=== PATIENT | female | born 1955 | race Caucasian/White ===

== ENCOUNTER 2017-11-19 11:09 | Emergency (ER) | payer OTHER ==
[2017-11-19 11:18] VITALS: BP 141/81; PULSE 80; TEMP 98.8; BMI 23.8
--- NOTE | 2017-11-19 12:03 | PDOC ---
History of Present Illness - General Chief Complaint: Injury Stated Complaint: INJURY Time Seen by Provider: 11/19/17 12:00 - History of Present Illness Initial Comments: 62-year-old female without comorbidities presents for evaluation of right fifth toe pain. She states she stubbed her toe into the sink of a kitchen while cleaning to presents with pain. 11/19/17 12:03 Past History - Past Medical History Allergies/Adverse Reactions: Allergies Allergy/AdvReac Type Severity Reaction Status Date / Time No Known Allergies Allergy Verified 11/19/17 12:01 Home Medications: Ambulatory Orders Unobtainable Home Med List 0 dose .ROUTE UTDICT 03/01/13 CVA: Yes (1 year ago) COPD: No HTN: Yes Hypercholesterolemia: Yes Psychiatric Problems: Yes (ANXIETY) - Immunization History Immunization Up to Date: Yes - Suicide/Smoking/Psychosocial Hx Smoking Status: Yes Smoking History: Current every day smoker Number of Cigarettes Smoked Daily: 8 Information on smoking cessation initiated: No 'Breaking Loose' booklet given: 03/02/13 Hx Alcohol Use: No Substance Use Type: None Review of Systems - Review of Systems Musculoskeletal: Yes: See HPI, Joint Pain All Other Systems: Reviewed and Negative *Physical Exam - Vital Signs Last Vital Signs Temp Pulse Resp BP Pulse Ox 98.8 F 80 18 141/81 11/19/17 11:14 11/19/17 11:14 11/19/17 11:14 11/19/17 11:14 - Physical Exam Comments: Right foot normal color and temperature there is tenderness about the fifth toe. There are no gross sensorimotor deficits. She's neurovascular intact. 11/19/17 12:03 ED Treatment Course - RADIOLOGY Radiology Studies Ordered: Category Date Time Status TOE(S) RIGHT [RAD] Stat Radiology 11/19/17 12:01 Ordered Medical Decision Making - Medical Decision Making Under aseptic technique 10 mL of lidocaine cane was used without epinephrine for digital block of the right fifth toe this was tolerated well. After appropriate anesthesia was obtained. Gentle traction and countertraction with manipulation was applied to the proximal phalanx of the right fifth toe. Reduction was made and held together with siomara taping. Postreduction x-rays show adequately reduced proximal phalanx fracture of the right fifth toe. Hartsell shoe and siomara taping was advised. Orthopedic surgery follow-up was given. 11/19/17 13:28 *DC/Admit/Observation/Transfer Diagnosis at time of Disposition: Toe fracture, right - Discharge Dispostion Disposition: HOME Condition at time of disposition: Stable Decision to Admit order: No - Referrals Referrals: Alonso Haynes MD [Primary Care Provider] - Eddie Marvin MD [Staff Physician] - - Patient Instructions Printed Discharge Instructions: Toe Fracture, DI for Toe Fracture Additional Instructions: Keep ear toes siomara taped until you are seen by orthopedic surgery. He may weight-bear as tolerated with use of the Hartsell shoe and crutches. May take Tylenol and Motrin as directed for pain. Return to the emergency room should symptoms worsen or go unresolved. Follow-up with orthopedic surgery in 2-3 days. - Post Discharge Activity
[2017-11-19] MEDS ORDERED: LIDOCAINE HCL 2% (20ML MULTI-DOSE VIAL) NR ONE (12:54)
[2017-11-19] MEDS ORDERED: LIDOCAINE HCL 2% (50ML VIAL) SQ ONE (13:06)
== END 2017-11-19 13:42 | disposition home or self-care (01) ==
LOC: JERFT 11:09
PROC: 0QSQXZZ Reposition Right Toe Phalanx, External Approach (ICD-10-PCS; principal; 2017-11-19)
DX: S92.511A Displaced fracture of proximal phalanx of right lesser toe(s), initial encounter for closed fracture (principal); W22.8XXA Striking against or struck by other objects, initial encounter; Y93.E9 Activity, other interior property and clothing maintenance; Y92.040 Kitchen in boarding-house as the place of occurrence of the external cause; Y99.8 Other external cause status
CPT/HCPCS: 28510; 73660-TC-FY; 99281-25

== ENCOUNTER 2020-05-10 10:52 | Inpatient (IN) | payer OTHER ==
[~2020-05-10 10:52] MED LIST: ASPIRIN 81 MG CHEWABLE TABLETS PO SCH
[2020-05-10 12:23] LABS: BASO % 0.6 % (0-2.0); EOS % 1.4 % (0-4.5); HEMATOCRIT 40.8 % (32.4-45.2); HEMOGLOBIN 13.5 GM/dL (10.7-15.3); LYMPH % 22.9 % (8-40); MCHC 33.2 g/dl (32.0-36.0); MEAN CELL VOLUME 90.6 fl (80-96); MEAN PLT VOLUME 8.8 fl (7.5-11.1); MONO % 5.6 % (3.8-10.2); NEUT % 69.5 % (42.8-82.8); PLATELET COUNT 306 K/MM3 (134-434); RDW 14.2 % (11.6-15.6)
[2020-05-10 12:30] LABS: EPI CELLS 10 /uL (0-25.1); HYALINE CASTS 0 /uL (0-3.1); PH,URINE 6.5 (5.0-8.0); URINE APPEARANCE CLEAR; URINE BACTERIA 213 /uL (0-1359); URINE BILIRUBIN NEGATIVE (NEGATIVE); URINE COLOR YELLOW; URINE GLUCOSE (UA) NEGATIVE (NEGATIVE); URINE KETONE NEGATIVE (NEGATIVE); URINE LEUK ESTERASE NEGATIVE (NEGATIVE); URINE NITRITE NEGATIVE (NEGATIVE); URINE PROTEIN NEGATIVE (NEGATIVE); URINE RBC 25 /uL (0-23.9); URINE UROBILINOGEN 0.2 mg/dL (0.2-1.0); URINE WBC 2 /uL (0-25.8)
[2020-05-10 12:31] LABS: INR 0.97 (0.83-1.09); PROTHROMBIN TIME (PATIENT) 11.9 SEC (9.7-13.0)
[2020-05-10 12:34] LABS: ACTIVATED PTT 30.7 SECONDS (25.2-36.5)
[2020-05-10] MEDS: SODIUM CHLORIDE 1,000 ML IV SCH (12:39)
[2020-05-10 12:51] LABS: CHOLESTEROL 210 mg/dL (50-200)
[2020-05-10 12:52] LABS: TRIGLYCERIDES 197 mg/dL (0-150)
[2020-05-10 12:53] LABS: LDL CHOLESTEROL (ONLY SJRH) 131 mg/dL (5-100)
[2020-05-10 12:54] LABS: CHLORIDE 107 mmol/L (98-107); SODIUM 141 mmol/L (136-145)
[2020-05-10 12:55] LABS: CALCIUM 8.8 mg/dL (8.5-10.1); HDL CHOLESTEROL 52 mg/dL (40-60)
[2020-05-10 12:56] LABS: ALBUMIN 3.7 g/dl (3.4-5.0); ANION GAP 3 MMOL/L (8-16); BLOOD UREA NITROGEN 15.4 mg/dL (7-18); CO2 31 mmol/L (21-32); GLUCOSE,RANDOM 87 mg/dL (74-106)
[2020-05-10 12:59] LABS: CREATININE 0.9 mg/dL (0.55-1.3); SGOT/AST 14 U/L (15-37); SGPT/ALT 27 U/L (13-61)
[2020-05-10 13:01] LABS: TOT PROT 7.6 g/dl (6.4-8.2)
[2020-05-10 13:02] LABS: ALK PHOS 118 U/L (45-117)
[2020-05-10] MEDS: ASPIRIN 81 MG CHEWABLE TABLETS PO SCH (15:27)
[2020-05-10 16:29] LABS: CHOLESTEROL 198 mg/dL (50-200)
[2020-05-10 16:30] LABS: TRIGLYCERIDES 159 mg/dL (0-150)
[2020-05-10 16:31] LABS: LDL CHOLESTEROL (ONLY SJRH) 123 mg/dL (5-100)
[2020-05-10 16:32] LABS: HDL CHOLESTEROL 48 mg/dL (40-60)
[2020-05-10] MEDS: predniSONE 20 MG TABLET (UD) PO SCH ×2 (17:22→17:29)
[2020-05-10] MEDS ORDERED: predniSONE 20 MG TABLET (UD) ONE (17:29)
[2020-05-10] MEDS ORDERED: ATORVASTATIN CA 20 MG TABLET (FP) PO SCH (22:00)
[2020-05-10] MEDS: QUEtiapine FUMARATE 25 MG TABLET PO SCH (22:04)
[2020-05-10 23:54] VITALS: BMI 24.3
[2020-05-11 07:22] LABS: BASO % 0.4 % (0-2.0); EOS % 0.1 % (0-4.5); HEMATOCRIT 39.1 % (32.4-45.2); MCH 30.1 pg (25.7-33.7); MCHC 33.3 g/dl (32.0-36.0); MEAN CELL VOLUME 90.4 fl (80-96); MEAN PLT VOLUME 8.9 fl (7.5-11.1); MONO % 2.1 % (3.8-10.2); NEUT % 80.4 % (42.8-82.8); PLATELET COUNT 313 K/MM3 (134-434); RBC 4.33 M/mm3 (3.60-5.2); RDW 14.4 % (11.6-15.6); WHITE BLOOD COUNT 10.8 K/mm3 (4.0-10.0)
[2020-05-11 07:39] LABS: ALBUMIN 3.4 g/dl (3.4-5.0); BLOOD UREA NITROGEN 16.4 mg/dL (7-18); MAGNESIUM 2.3 mg/dL (1.8-2.4)
[2020-05-11 07:42] LABS: CREATININE 0.7 mg/dL (0.55-1.3); PHOSPHOROUS 3.2 mg/dL (2.5-4.9)
[2020-05-11 07:43] LABS: BILIRUBIN,TOTAL 0.5 mg/dL (0.2-1)
[2020-05-11] MEDS ORDERED: FLU VACCINE (FLULAVAL) PF 60 MCG/0.5 ML SYRINGE 2020-2021 IM ONE (09:00)
[2020-05-11] MEDS: predniSONE 20 MG TABLET (UD) PO SCH (09:40)
[2020-05-11] MEDS: ASPIRIN 81 MG CHEWABLE TABLETS PO SCH (09:41)
[2020-05-11] MEDS: QUEtiapine FUMARATE 25 MG TABLET PO SCH (09:41)
[2020-05-11] MEDS ORDERED: FUROSEMIDE 20 MG TABLET (FP) PO SCH (10:00)
[2020-05-11] MEDS ORDERED: ENOXAPARIN NA (PORCINE) 40 MG/0.4 ML DISP.SYRIN SQ SCH (10:00)
[2020-05-11] MEDS ORDERED: LISINOPRIL 20 MG TABLET PO SCH (10:00)
[2020-05-11] MEDS ORDERED: predniSONE 20 MG TABLET (UD) PO SCH (11:36)
[2020-05-11] MEDS: SODIUM CHLORIDE 1,000 ML IV SCH (11:58)
[2020-05-11 14:24] VITALS: BP 137/72; PULSE 79; TEMP 98
== END 2020-05-11 14:29 | disposition home or self-care (01) | DRG 48 ==
LOC: JER 10:52 → JERBED 13:37 → J4W 21:11
PROVIDERS: ADMIT Internal Medicine; ATTEND Internal Medicine
DX: G51.0 Bell's palsy (principal); I10 Essential (primary) hypertension
CPT/HCPCS: 36415; 70450-TC; 80053; 80061; 81003; 82550; 83036; 83721; 83735; 84100; 84443; 84484; 85025; 85610; 85730; 86618; 86850; 86900; 86901; 93005; 93010; 99285-25; C9803; G0008; Q2036; U0003

== ENCOUNTER 2024-02-27 09:08 | Emergency (ER) | payer OTHER ==
[2024-02-27 09:29] VITALS: BMI 26.5
[2024-02-27] MEDS ORDERED: ONDANSETRON 4 MG/2 ML VIAL ONE ×2 (10:27→16:04)
[2024-02-27] MEDS ORDERED: morphine SULFATE 4 MG/ML VIAL ONE (10:27)
[2024-02-27] MEDS: morphine CARPU-JECT 4 MG/1 ML DISP.SYRIN IVPUSH ONE (10:38)
[2024-02-27] MEDS: ONDANSETRON 4 MG/2 ML VIAL IVPUSH ONE ×2 (10:39→16:09)
[2024-02-27 10:44] LABS: BASO % 0.4 % (0-2.0); EOS % 0.1 % (0-4.5); HEMATOCRIT 41.9 % (32.4-45.2); HEMOGLOBIN 13.7 GM/dL (10.7-15.3); LYMPH % 11.1 % (8-40); MCH 29.4 pg (25.7-33.7); MCHC 32.7 g/dl (32.0-36.0); MEAN CELL VOLUME 89.8 fl (80-96); MONO % 4.5 % (3.8-10.2); NEUT % 83.9 % (42.8-82.8); PLATELET COUNT 336 10^3/uL (134-434); RBC 4.67 M/mm3 (3.60-5.2); WHITE BLOOD COUNT 13.2 K/mm3 (4.0-10.0)
[2024-02-27 11:05] LABS: POTASSIUM 5.5 mmol/L (3.5-5.1)
[2024-02-27 11:08] LABS: BLOOD UREA NITROGEN 15.8 mg/dL (7-18); CALCIUM 9.7 mg/dL (8.5-10.1)
[2024-02-27 11:10] LABS: CREATININE 1.1 mg/dL (0.55-1.3)
[2024-02-27 11:12] LABS: BILIRUBIN,TOTAL 0.9 mg/dL (0.2-1); TOT PROT 8.4 g/dl (6.4-8.2)
[2024-02-27 14:10] LABS: EPI CELLS 3 /uL (0-25.1); HYALINE CASTS 0 /uL (0-3.1); PH,URINE 6.5 (5.0-8.0); URINE APPEARANCE Clear; URINE BACTERIA 4 /uL (0-1359); URINE BILIRUBIN Negative (NEGATIVE); URINE COLOR Yellow; URINE GLUCOSE (UA) Negative (NEGATIVE); URINE KETONE Negative (NEGATIVE); URINE LEUK ESTERASE Negative (NEGATIVE); URINE NITRITE Negative (NEGATIVE); URINE PROTEIN Negative (NEGATIVE); URINE RBC 418 /uL (0-23.9); URINE UROBILINOGEN 0.2 mg/dL (0.2-1.0); URINE WBC 15 /uL (0-25.8)
[2024-02-27 15:21] VITALS: BP 141/92; PULSE 68; RESP 19; TEMP 98.3
== END 2024-02-27 16:11 | disposition home or self-care (01) ==
LOC: JER 09:08
PROC: 3E033NZ Introduction of Analgesics, Hypnotics, Sedatives into Peripheral Vein, Percutaneous Approach (ICD-10-PCS; principal; 2024-02-27)
PROC: 3E033GC Introduction of Other Therapeutic Substance into Peripheral Vein, Percutaneous Approach (ICD-10-PCS; 2024-02-27)
PROC: 3E033GC Introduction of Other Therapeutic Substance into Peripheral Vein, Percutaneous Approach (ICD-10-PCS; 2024-02-27)
DX: N13.2 Hydronephrosis with renal and ureteral calculous obstruction (principal); R10.31 Right lower quadrant pain; R11.2 Nausea with vomiting, unspecified
CPT/HCPCS: 36415; 74177-TC; 80053; 81003; 85025; 99285-25; Q9967